=== PATIENT | male | born 2000 | race Caucasian/White ===

== ENCOUNTER 2021-08-05 07:26 | Emergency (ER) | payer SELFPAY ==
[~2021-08-05] VITALS: Ht 172.7 cm; Wt 74.8 kg
[2021-08-05 07:45] VITALS: BP 122/70
[2021-08-05 07:51] VITALS: BP 118/70
--- NOTE | 2021-08-05 07:51 | NUR ---
PT PREBOOK. [facility] 15. DC IN [employer] CUSTODY IN STABLE CONDITION
== END 2021-08-05 07:51 ==
LOC: MED 07:26
DX: Z02.89 Encounter for other administrative examinations (principal); V89.2XXA Person injured in unspecified motor-vehicle accident, traffic, initial encounter; Y93.89 Activity, other specified; Y92.89 Other specified places as the place of occurrence of the external cause; Y99.8 Other external cause status
CPT/HCPCS: 99283